=== PATIENT | male | born 1950 | race Caucasian/White ===

== ENCOUNTER → 2018-09-30 | Outpatient (CLI) | payer MEDICARE | END | disposition home or self-care (01) | LOC: PCVCCLINIC 14:23 | PROVIDERS: ATTEND Internal Medicine Cardiovascular Disease | DX: I65.22 Occlusion and stenosis of left carotid artery (principal); R09.89 Other specified symptoms and signs involving the circulatory and respiratory systems; I87.2 Venous insufficiency (chronic) (peripheral); I35.8 Other nonrheumatic aortic valve disorders; I35.0 Nonrheumatic aortic (valve) stenosis; I10 Essential (primary) hypertension; R60.9 Edema, unspecified; Z95.1 Presence of aortocoronary bypass graft; Z87.891 Personal history of nicotine dependence | CPT/HCPCS: 36415; 80061; 93005; G0463 ==

== ENCOUNTER → 2019-02-10 | Outpatient (CLI) | payer MEDICARE ==
--- NOTE | 2019-02-10 08:47 | PCVCIMAG ---
EXAM: BILATERAL CAROTID DUPLEX INDICATION: Carotid Occlusive Disease. s/p LCEA. FINDINGS: Doppler Measurements (centimeters per second): RIGHT: Peak CCA-91, Peak ECA-233, Diastolic ICA-31, Peak ICA-132, ICA/CCA Ratio-1.4. LEFT: Peak CCA-119, Peak ECA-214, Diastolic ICA-7, Peak ICA-120, ICA/CCA Ratio-1.0. RIGHT CAROTID: The carotid bulb has moderate plaque. The proximal internal carotid artery shows 40-50% stenosis. The common carotid artery shows no significant stenosis. The external carotid artery shows 70% stenosis. LEFT CAROTID: The carotid bulb has no significant plaque. The proximal internal carotid artery shows no significant stenosis. The common carotid artery shows no significant stenosis. The external carotid artery shows 70% stenosis. Antegrade flow in both vertebral arteries. IMPRESSION: 40-50% stenosis of the right internal carotid artery with moderate plaque. No significant stenosis of the left internal carotid artery with no significant plaque. LOC:[place] [id number]
--- NOTE | 2019-02-10 19:54 | PCVCIMAG ---
EXAM: NONINVASIVE ARTERIAL EXAMINATION OF BOTH LOWER EXTREMITIES INCLUDING PRE AND POST EXERCISE PRESSURE MEASUREMENTS AND DOPPLER WAVEFORMS INDICATION: Peripheral Arterial Disease. Leg pain. FINDINGS: Right Brachial: 154 mm Hg. Right Dorsalis Pedis: 92 mm Hg. Right Posterior Tibial: 104 mm Hg. Right DEBORAH = 0.68. Left Brachial: 148 mm Hg. Left Dorsalis Pedis: 74 mm Hg. Left Posterior Tibial: 62 mm Hg. Left DEBORAH = 0.48. Post Exercise: Right Brachial 160 mm Hg. Right Posterior Tibial: 70 mm Hg. Left Dorsalis Pedis: 48 mm Hg. Right DEBORAH = 0.44. Left DEBORAH = 0.30. IMPRESSION: Mild resting ischemia in the right lower extremity. Moderate exercise induced ischemia in the right lower extremity. Moderate resting ischemia in the left lower extremity. Moderately severe exercise induced ischemia in the left lower extremity. LOC:OFFICE
--- NOTE | 2019-02-10 19:58 | PCVCIMAG ---
EXAM: BILATERAL LOWER EXTREMITY ARTERIAL DUPLEX INDICATION: Peripheral Arterial Disease. Leg pain. FINDINGS: Right Leg: Common femoral and profunda femoral arteries are patent. Increased systolic velocities 256 cm/s distal [place] superficial femoral artery consistent with 70% stenosis. Popliteal artery is patent. Anterior tibial, peroneal, and posterior tibial arteries are patent. Left Le% stenosis distal [place] external iliac artery. Common femoral and profunda femoral arteries are patent. Superficial femoral artery is patent. Occlusion of the proximal/mid [place] popliteal artery. Occlusion of the proximal/mid posterior tibial artery. The anterior tibial artery and peroneal arteries are patent. IMPRESSION: 70% stenosis distal [place] right superficial femoral artery. 70% stenosis distal [place] left external iliac artery. Occlusion of the proximal/mid [place] left popliteal artery. Occlusion of the proximal/mid left posterior tibial artery. LOC:OFFICE
== END | disposition home or self-care (01) ==
LOC: PCVCIMAG 07:43
PROVIDERS: ATTEND Nuclear Medicine Nuclear Cardiology
DX: I65.23 Occlusion and stenosis of bilateral carotid arteries (principal); I73.9 Peripheral vascular disease, unspecified; E78.00 Pure hypercholesterolemia, unspecified; E08.00 Diabetes mellitus due to underlying condition with hyperosmolarity without nonketotic hyperglycemic-hyperosmolar coma (NKHHC); Z98.890 Other specified postprocedural states
CPT/HCPCS: 93880; 93924; 93925

== ENCOUNTER → 2019-02-13 | Outpatient (CLI) | payer MEDICARE | END | disposition home or self-care (01) | LOC: PCVCCLINIC 09:20 | PROVIDERS: ATTEND Nuclear Medicine Nuclear Cardiology | DX: I25.10 Atherosclerotic heart disease of native coronary artery without angina pectoris (principal); I73.9 Peripheral vascular disease, unspecified; I77.9 Disorder of arteries and arterioles, unspecified; I10 Essential (primary) hypertension; E78.00 Pure hypercholesterolemia, unspecified; J44.9 Chronic obstructive pulmonary disease, unspecified; E08.00 Diabetes mellitus due to underlying condition with hyperosmolarity without nonketotic hyperglycemic-hyperosmolar coma (NKHHC); Q23.1 Congenital insufficiency of aortic valve | CPT/HCPCS: G0463 ==

== ENCOUNTER → 2019-06-12 | Outpatient (CLI) | payer MEDICARE ==
--- NOTE | 2019-06-12 12:35 | PCVCIMAG ---
EXAM: BILATERAL LOWER EXTREMITY ARTERIAL DUPLEX INDICATION: Peripheral Arterial Disease. Leg pain. FINDINGS: Right Leg: Common femoral and profunda femoral arteries are patent. Superficial femoral artery and popliteal artery patent. Previous stent superficial femoral artery is patent. The anterior tibial, peroneal, and posterior tibial arteries are patent. Left Leg: Common femoral and profunda femoral arteries show adequate patency. Superficial femoral artery is patent. Occlusion of the mid and upper popliteal artery unchanged. The anterior tibial, peroneal, and posterior tibial arteries are patent. IMPRESSION: No flow limiting stenosis in the right lower extremity. Previous right superficial femoral artery stent maintaining satisfactory patency. Unchanged occlusion proximal/mid left popliteal artery. LOC:[id number]
== END | disposition home or self-care (01) ==
LOC: PCVCIMAG 10:57
PROVIDERS: ATTEND Nuclear Medicine Nuclear Cardiology
DX: I70.292 Other atherosclerosis of native arteries of extremities, left leg (principal); E11.22 Type 2 diabetes mellitus with diabetic chronic kidney disease; I12.9 Hypertensive chronic kidney disease with stage 1 through stage 4 chronic kidney disease, or unspecified chronic kidney disease; N18.9 Chronic kidney disease, unspecified; E78.00 Pure hypercholesterolemia, unspecified; I25.10 Atherosclerotic heart disease of native coronary artery without angina pectoris; I35.0 Nonrheumatic aortic (valve) stenosis; J44.9 Chronic obstructive pulmonary disease, unspecified; I70.1 Atherosclerosis of renal artery; Z95.1 Presence of aortocoronary bypass graft; Z80.1 Family history of malignant neoplasm of trachea, bronchus and lung; Z86.39 Personal history of other endocrine, nutritional and metabolic disease; Z87.891 Personal history of nicotine dependence; Z79.4 Long term (current) use of insulin; Z79.82 Long term (current) use of aspirin
CPT/HCPCS: 93925; G0463